=== PATIENT | male | born 1995 | race African-American/Black ===

== ENCOUNTER 2019-08-27 14:32 | Inpatient (IN) | payer MEDICAID ==
[~2019-08-27] VITALS: Ht 190.5 cm; Wt 81.6 kg
[2019-08-27] MEDS ORDERED: ETOMIDATE 20 MG/10 ML VIAL IV ONE ×2 (14:33→15:30)
[2019-08-27] MEDS ORDERED: SUCCINYLCHOLINE CHLORIDE 200 MG/10 ML VIAL IV ONE ×2 (14:33→15:30)
[2019-08-27] MEDS ORDERED: methylPREDNISolone SOD SUCC 125 MG/2 ML VIAL ONE (14:37)
[2019-08-27] MEDS ORDERED: ALBUTEROL SULFATE 2.5 MG/3 ML NEBU ONE ×3 (14:38→15:25)
[2019-08-27] MEDS ORDERED: IPRATROPIUM BROMIDE 0.5 MG/2.5 ML NEBU ONE ×4 (14:38→15:27)
[2019-08-27] MEDS ORDERED: MAGNESIUM SULFATE/D5W 200 ML ONE (14:43)
[2019-08-27] MEDS ORDERED: LORAZEPAM 2 MG/1 ML VIAL ONE (14:47)
[2019-08-27] MEDS ORDERED: EPINEPHRINE 1 MG/1 ML AMP ONE (14:58)
[2019-08-27] MEDS ORDERED: PROPOFOL 100 ML ONE (15:03)
[2019-08-27] MEDS ORDERED: ALBUTEROL SULFATE 2.5 MG/ 0.5 ML NEBU ONE ×2 (15:25→15:27)
[2019-08-27] MEDS ORDERED: ALBUTEROL SULFATE 2.5 MG/3 ML NEBU NEB ONE ×2 (15:30→18:30)
[2019-08-27] MEDS ORDERED: EPINEPHRINE 1 MG/1 ML AMP SQ ONE (15:30)
[2019-08-27] MEDS: PROPOFOL 100 ML IV PRN ×7 (15:30→23:35)
[2019-08-27] MEDS ORDERED: LORAZEPAM 2 MG/1 ML VIAL IV ONE ×2 (15:30→18:00)
[2019-08-27] MEDS ORDERED: IPRATROPIUM BROMIDE 0.5 MG/2.5 ML NEBU NEB ONE ×2 (15:30→18:30)
[2019-08-27] MEDS ORDERED: MAGNESIUM SULFATE 2 GM in IV DEXTROSE 5% 100 ML IV ONE (15:30)
[2019-08-27 15:34] LABS: BASOPHILS # (AUTO) 0.1 K/uL (0.0-8.0); BASOPHILS % (AUTO) 0.7 % (0.0-2.0); EOSINOPHILS # (AUTO) 0.5 K/uL (0.0-0.7); EOSINOPHILS % (AUTO) 3.7 % (0.0-7.0); HEMATOCRIT 47.7 % (36.7-47.1); HEMOGLOBIN 15.6 g/dL (12.5-16.3); LYMPHOCYTES # (AUTO) 4.5 K/uL (20.0-40.0); LYMPHOCYTES % (AUTO) 36.6 % (20.5-51.5); MEAN CORPUSCULAR HEMOGLOBIN 28.4 uug (23.8-33.4); MEAN CORPUSCULAR HGB CONC 33 g/dL (32.5-36.3); MEAN CORPUSCULAR VOLUME 86.9 fL (73.0-96.2); MONOCYTES # (AUTO) 0.7 K/uL (2.0-10.0); MONOCYTES % (AUTO) 5.6 % (0.0-11.0); NEUTROPHILS # (AUTO) 6.6 K/uL (1.8-8.9); NEUTROPHILS % (AUTO) 53.4 % (38.5-71.5); PLATELET COUNT (AUTO) 324 K/uL (152-348); RED BLOOD CELL COUNT(AUTO) 5.49 MIL/uL (4.06-5.63); WHITE BLOOD COUNT (AUTO) 12.3 K/uL (3.6-10.2)
[2019-08-27 15:37] LABS: CREATININE 1.2 mg/dL (0.6-1.3); POTASSIUM 4.2 mmol/L (3.5-5.1)
[2019-08-27 15:50] LABS: BILIRUBIN,DIRECT 0.1 mg/dL (0.0-0.2); BILIRUBIN,TOTAL 0.5 mg/dL (0.2-1.0); TOTAL PROTEIN, SERUM 8.2 g/dL (6.4-8.2)
[2019-08-27] MEDS ORDERED: ALBU8.5H8 IH (15:50)
[2019-08-27 16:35] LABS: ABG HCO3 22.3 mmol/L; ABG PCO2 66.8 mmHg (35.0-45.0); ABG PH 7.142 (7.350-7.450); ABG PO2 531.8 mmHg (75.0-100.0); ABG SITE LEFT RADIAL; ABG TOTAL HEMOGLOBIN 15.6 G/dL (13.5-18.0); COHb 0.7 % (0.5-1.5); MetHb 0.4 % (0.0-1.5); O2Hb 98.6 % (94.0-97.0); VENT MODE VENT - A/C; VT, ABG 500 mL
[2019-08-27] MEDS ORDERED: FAMOTIDINE. 20 MG/2 ML VIAL IV ONE ×2 (16:43→16:45)
[2019-08-27] MEDS ORDERED: MORPHINE SULFATE 2 MG/1 ML DISP.SYRIN IV PRN (17:45)
[2019-08-27] MEDS ORDERED: ENALAPRILAT DIHYDRATE 1.25 MG/1 ML VIAL IV PRN (17:45)
[2019-08-27] MEDS ORDERED: ACETAMINOPHEN 650 MG SUPP.RECT RC PRN (17:45)
[2019-08-27 18:00] VITALS: BP 142/66
[2019-08-27] MEDS: IV D5 1/2 NS 1000 ML 1,000 ML IV PRN (18:00)
[2019-08-27] MEDS: LEVOFLOXACIN 500 MG/D5W 500 MG in PREMIXED 1 EACH IV SCH (18:09)
[2019-08-27] MEDS ORDERED: LEVALBUTEROL HCL NEB 0.63 MG/3 ML NEBU NEB PRN (18:30)
[2019-08-27] MEDS: methylPREDNISolone SOD SUCC 40 MG/ML VIAL IV SCH ×2 (18:47→23:39)
[2019-08-27 20:00] VITALS: BP 149/70
[2019-08-27 21:00] VITALS: BP 111/55
[2019-08-27 22:00] VITALS: BP 120/62
[2019-08-27 23:00] VITALS: BP 98/60
[2019-08-28] VITALS (22 sets, daily range): BP systolic 91–150; BP diastolic 45–107
[2019-08-28] MEDS: PROPOFOL 100 ML IV PRN ×6 (03:40→21:43)
[2019-08-28 05:15] LABS: BASOPHILS % (AUTO) 0.3 % (0.0-2.0); HEMATOCRIT 41.4 % (36.7-47.1); LYMPHOCYTES # (AUTO) 0.6 K/uL (20.0-40.0); LYMPHOCYTES % (AUTO) 5.9 % (20.5-51.5); MEAN CORPUSCULAR HEMOGLOBIN 28.8 uug (23.8-33.4); MEAN CORPUSCULAR HGB CONC 34 g/dL (32.5-36.3); MEAN CORPUSCULAR VOLUME 85.2 fL (73.0-96.2); MONOCYTES # (AUTO) 0.2 K/uL (2.0-10.0); MONOCYTES % (AUTO) 2.4 % (0.0-11.0); NEUTROPHILS # (AUTO) 9.5 K/uL (1.8-8.9); NEUTROPHILS % (AUTO) 91.4 % (38.5-71.5); PLATELET COUNT (AUTO) 288 K/uL (152-348); RED BLOOD CELL COUNT(AUTO) 4.86 MIL/uL (4.06-5.63); WHITE BLOOD COUNT (AUTO) 10.4 K/uL (3.6-10.2)
[2019-08-28 05:29] LABS: BILIRUBIN,TOTAL 0.4 mg/dL (0.2-1.0); CREATININE 1.3 mg/dL (0.6-1.3); MAGNESIUM 2.1 mg/dL (1.8-2.4); PHOSPHOROUS 2.5 mg/dL (2.5-4.9); POTASSIUM 5.2 mmol/L (3.5-5.1); TOTAL PROTEIN, SERUM 7.3 g/dL (6.4-8.2)
[2019-08-28 05:36] LABS: THYROID STIMULATING HORMONE 0.249 mIU/mL (0.358-3.740)
[2019-08-28 06:06] LABS: ABG BASE EXCESS -4.5 mmol/L; ABG HCO3 21.1 mmol/L; ABG PCO2 40.6 mmHg (35.0-45.0); ABG PH 7.333 (7.350-7.450); ABG PO2 139.7 mmHg (75.0-100.0); ABG SITE LEFT BRACHIAL; ABG TOTAL HEMOGLOBIN 15.2 G/dL (13.5-18.0); COHb 0.6 % (0.5-1.5); MetHb 0.4 % (0.0-1.5); O2Hb 97.9 % (94.0-97.0); VENT MODE VENT - A/C; VT, ABG 500 mL
[2019-08-28] MEDS: methylPREDNISolone SOD SUCC 40 MG/ML VIAL IV SCH ×4 (06:12→23:28)
[2019-08-28] MEDS: PANTOPRAZOLE SODIUM 40 MG VIAL IV SCH (07:42)
[2019-08-28] MEDS ORDERED: IPRATROPIUM BROMIDE 0.5 MG/2.5 ML NEBU NEB PRN (11:15)
[2019-08-28] MEDS ORDERED: ALBUTEROL SULFATE 2.5 MG/3 ML NEBU NEB PRN (11:15)
[2019-08-28] MEDS: IV D5 1/2 NS 1000 ML 1,000 ML IV PRN ×2 (11:30→19:35)
[2019-08-28] MEDS: IPRATROPIUM BROMIDE 0.5 MG/2.5 ML NEBU NEB SCH ×4 (11:53→23:56)
[2019-08-28] MEDS: ALBUTEROL SULFATE 2.5 MG/3 ML NEBU NEB SCH ×4 (11:53→23:57)
[2019-08-28] MEDS: ENOXAPARIN SODIUM 40 MG/0.4 ML DISP.SYRIN SQ SCH (12:08)
[2019-08-28] MEDS: LEVOFLOXACIN 500 MG/D5W 500 MG in PREMIXED 1 EACH IV SCH (17:02)
[2019-08-29] VITALS (23 sets, daily range): BP systolic 113–172; BP diastolic 48–105
[2019-08-29] MEDS: PROPOFOL 100 ML IV PRN ×10 (00:24→22:25)
[2019-08-29] MEDS: IPRATROPIUM BROMIDE 0.5 MG/2.5 ML NEBU NEB SCH ×6 (03:58→23:58)
[2019-08-29] MEDS: ALBUTEROL SULFATE 2.5 MG/3 ML NEBU NEB SCH ×6 (03:59→23:58)
[2019-08-29] MEDS: IV D5 1/2 NS 1000 ML 1,000 ML IV PRN ×3 (04:03→21:07)
[2019-08-29] MEDS: methylPREDNISolone SOD SUCC 40 MG/ML VIAL IV SCH ×4 (06:08→23:33)
[2019-08-29 06:16] LABS: BASOPHILS % (AUTO) 0.1 % (0.0-2.0); HEMOGLOBIN 14.8 g/dL (12.5-16.3); LYMPHOCYTES # (AUTO) 0.9 K/uL (20.0-40.0); LYMPHOCYTES % (AUTO) 5.8 % (20.5-51.5); MEAN CORPUSCULAR HEMOGLOBIN 28.7 uug (23.8-33.4); MEAN CORPUSCULAR HGB CONC 33 g/dL (32.5-36.3); MEAN CORPUSCULAR VOLUME 87.2 fL (73.0-96.2); MONOCYTES % (AUTO) 6.9 % (0.0-11.0); NEUTROPHILS % (AUTO) 87.2 % (38.5-71.5); PLATELET COUNT (AUTO) 269 K/uL (152-348); RED BLOOD CELL COUNT(AUTO) 5.16 MIL/uL (4.06-5.63); WHITE BLOOD COUNT (AUTO) 14.9 K/uL (3.6-10.2)
[2019-08-29 06:38] LABS: CREATININE 1.2 mg/dL (0.6-1.3); MAGNESIUM 2.7 mg/dL (1.8-2.4); PHOSPHOROUS 4.8 mg/dL (2.5-4.9); POTASSIUM 4.4 mmol/L (3.5-5.1)
[2019-08-29 08:21] LABS: ABG BASE EXCESS -3.3 mmol/L; ABG PCO2 31.2 mmHg (35.0-45.0); ABG PH 7.424 (7.350-7.450); ABG PO2 88.3 mmHg (75.0-100.0); ABG SITE RIGHT RADIAL; ABG TOTAL HEMOGLOBIN 14.7 G/dL (13.5-18.0); COHb 0.9 % (0.5-1.5); MetHb 0.2 % (0.0-1.5); O2Hb 96.2 % (94.0-97.0); VENT MODE VENT - A/C; VT, ABG 500 mL
[2019-08-29] MEDS: PANTOPRAZOLE SODIUM 40 MG VIAL IV SCH (09:30)
[2019-08-29] MEDS: MIDAZOLAM HCL 2 MG/2 ML VIAL IV PRN ×2 (11:55→14:21)
[2019-08-29] MEDS: ENOXAPARIN SODIUM 40 MG/0.4 ML DISP.SYRIN SQ SCH (12:05)
[2019-08-29] MEDS ORDERED: ENALAPRILAT DIHYDRATE 2.5 MG/2 ML VIAL IV PRN (18:15)
[2019-08-29] MEDS: LEVOFLOXACIN 500 MG/D5W 500 MG in PREMIXED 1 EACH IV SCH (18:15)
[2019-08-30] VITALS (25 sets, daily range): BP systolic 124–182; BP diastolic 72–105
[2019-08-30] MEDS: PROPOFOL 100 ML IV PRN ×5 (01:08→07:48)
[2019-08-30] MEDS: IPRATROPIUM BROMIDE 0.5 MG/2.5 ML NEBU NEB SCH ×6 (03:30→23:30)
[2019-08-30] MEDS: ALBUTEROL SULFATE 2.5 MG/3 ML NEBU NEB SCH ×6 (03:30→23:30)
[2019-08-30] MEDS: IV D5 1/2 NS 1000 ML 1,000 ML IV PRN ×2 (05:10→13:10)
[2019-08-30] MEDS: methylPREDNISolone SOD SUCC 40 MG/ML VIAL IV SCH ×4 (05:17→23:48)
[2019-08-30 05:22] LABS: BASOPHILS % (AUTO) 0.1 % (0.0-2.0); HEMATOCRIT 40.9 % (36.7-47.1); HEMOGLOBIN 13.3 g/dL (12.5-16.3); LYMPHOCYTES # (AUTO) 0.7 K/uL (20.0-40.0); MEAN CORPUSCULAR HEMOGLOBIN 28.3 uug (23.8-33.4); MEAN CORPUSCULAR HGB CONC 33 g/dL (32.5-36.3); MONOCYTES # (AUTO) 0.5 K/uL (2.0-10.0); MONOCYTES % (AUTO) 3.9 % (0.0-11.0); NEUTROPHILS # (AUTO) 10.3 K/uL (1.8-8.9); PLATELET COUNT (AUTO) 262 K/uL (152-348); WHITE BLOOD COUNT (AUTO) 11.5 K/uL (3.6-10.2)
[2019-08-30 05:26] LABS: CREATININE 0.9 mg/dL (0.6-1.3); MAGNESIUM 2.3 mg/dL (1.8-2.4); PHOSPHOROUS 3.8 mg/dL (2.5-4.9)
[2019-08-30] MEDS: PANTOPRAZOLE SODIUM 40 MG VIAL IV SCH (07:53)
[2019-08-30 08:46] LABS: ABG BASE EXCESS -5.8 mmol/L; ABG HCO3 19.2 mmol/L; ABG PCO2 36.6 mmHg (35.0-45.0); ABG PH 7.338 (7.350-7.450); ABG PO2 131.2 mmHg (75.0-100.0); ABG SITE RIGHT RADIAL; ABG TOTAL HEMOGLOBIN 14.9 G/dL (13.5-18.0); COHb 0.6 % (0.5-1.5); MetHb 0.3 % (0.0-1.5); O2Hb 97.6 % (94.0-97.0); VENT MODE VENT - PSUPPORT; VT, ABG 1000 mL
[2019-08-30] MEDS ORDERED: DC PROPOFOL ONCE EXTUBATED XX PRN (09:15)
[2019-08-30] MEDS: ENOXAPARIN SODIUM 40 MG/0.4 ML DISP.SYRIN SQ SCH (11:55)
[2019-08-30] MEDS: LEVOFLOXACIN 500 MG/D5W 500 MG in PREMIXED 1 EACH IV SCH (17:31)
[2019-08-31] VITALS (16 sets, daily range): BP systolic 126–156; BP diastolic 58–87
[2019-08-31] MEDS: IV D5 1/2 NS 1000 ML 1,000 ML IV PRN (01:28)
[2019-08-31] MEDS: IPRATROPIUM BROMIDE 0.5 MG/2.5 ML NEBU NEB SCH ×6 (03:30→22:30)
[2019-08-31] MEDS: ALBUTEROL SULFATE 2.5 MG/3 ML NEBU NEB SCH ×6 (03:30→22:30)
[2019-08-31 05:24] LABS: CREATININE 0.9 mg/dL (0.6-1.3); MAGNESIUM 2.2 mg/dL (1.8-2.4); PHOSPHOROUS 4.5 mg/dL (2.5-4.9); POTASSIUM 3.9 mmol/L (3.5-5.1)
[2019-08-31 05:39] LABS: HEMATOCRIT 38.9 % (36.7-47.1); HEMOGLOBIN 12.9 g/dL (12.5-16.3); LYMPHOCYTES # (AUTO) 0.9 K/uL (20.0-40.0); LYMPHOCYTES % (AUTO) 8.5 % (20.5-51.5); MEAN CORPUSCULAR HEMOGLOBIN 28.5 uug (23.8-33.4); MEAN CORPUSCULAR HGB CONC 33 g/dL (32.5-36.3); MEAN CORPUSCULAR VOLUME 86.1 fL (73.0-96.2); MONOCYTES # (AUTO) 0.6 K/uL (2.0-10.0); MONOCYTES % (AUTO) 6.1 % (0.0-11.0); NEUTROPHILS % (AUTO) 85.4 % (38.5-71.5); PLATELET COUNT (AUTO) 238 K/uL (152-348); RED BLOOD CELL COUNT(AUTO) 4.51 MIL/uL (4.06-5.63); WHITE BLOOD COUNT (AUTO) 10.5 K/uL (3.6-10.2)
[2019-08-31] MEDS: methylPREDNISolone SOD SUCC 40 MG/ML VIAL IV SCH ×3 (07:07→20:58)
[2019-08-31] MEDS: PANTOPRAZOLE SODIUM 40 MG VIAL IV SCH (08:03)
[2019-08-31] MEDS: ENOXAPARIN SODIUM 40 MG/0.4 ML DISP.SYRIN SQ SCH (12:48)
[2019-08-31] MEDS: LEVOFLOXACIN 500 MG/D5W 500 MG in PREMIXED 1 EACH IV SCH (17:40)
[2019-09-01] MEDS: ALBUTEROL SULFATE 2.5 MG/3 ML NEBU NEB SCH ×2 (02:35→07:26)
[2019-09-01] MEDS: IPRATROPIUM BROMIDE 0.5 MG/2.5 ML NEBU NEB SCH ×2 (02:35→07:26)
[2019-09-01 05:18] VITALS: BP 127/76
[2019-09-01] MEDS ORDERED: PANTOPRAZOLE SODIUM 40 MG TABLET.DR PO SCH (07:00)
[2019-09-01] MEDS ORDERED: ALBU2.5V13 NEB (08:02)
[2019-09-01] MEDS ORDERED: METH4TAB3 PO (08:02)
[2019-09-01] MEDS: methylPREDNISolone SOD SUCC 40 MG/ML VIAL IV SCH (08:57)
== END 2019-09-01 10:00 | disposition home or self-care (01) | DRG 133 ==
LOC: ER 14:32 → CCU 17:48 → MEDSURG3 08-31 18:30
PROVIDERS: ADMIT Internal Medicine; ATTEND Internal Medicine
PROC: 5A1945Z Respiratory Ventilation, 24-96 Consecutive Hours (ICD-10-PCS; principal; 2019-08-27)
PROC: 0BH17EZ Insertion of Endotracheal Airway into Trachea, Via Natural or Artificial Opening (ICD-10-PCS; principal; 2019-08-27)
PROC: 0D9670Z Drainage of Stomach with Drainage Device, Via Natural or Artificial Opening (ICD-10-PCS; principal; 2019-08-27)
PROC: 02HV33Z Insertion of Infusion Device into Superior Vena Cava, Percutaneous Approach (ICD-10-PCS; 2019-08-29)
PROC: B548ZZA Ultrasonography of Superior Vena Cava, Guidance (ICD-10-PCS; 2019-08-29)
DX: J96.02 Acute respiratory failure with hypercapnia (principal); J45.902 Unspecified asthma with status asthmaticus; E87.2 Acidosis; J45.901 Unspecified asthma with (acute) exacerbation; J96.01 Acute respiratory failure with hypoxia; R73.9 Hyperglycemia, unspecified; R94.6 Abnormal results of thyroid function studies
CPT/HCPCS: 36415; 36600; 70030-TC; 71045; 82785; 83735; 84100; 84443; 84481; 85025; 85730; 87070; 87400; 93005; 94002; 94003; 94640; A4663; C9113; G0378; J0171; J0330; J1650; J1956; J2060; J2250; J2270; J2920; J2930; J3475; J3490; J3590; J7614